=== PATIENT | female | born 1975 | race Two or more races ===

== ENCOUNTER 2021-01-14 11:43 | Emergency (ER) | payer MEDICAID, OTHER ==
[~2021-01-14] VITALS: Ht 157.5 cm; Wt 52.2 kg
[~2021-01-14 11:43] MED LIST: ATOR20TA50 PO; CIPR-173 PO; METF-929 PO
[2021-01-14 13:41] VITALS: BP 91/52
[2021-01-14] MEDS ORDERED: HYDROcodone-ACET 5/325MG TAB PO ONE (14:00)
== END 2021-01-14 14:29 | disposition home or self-care (01) ==
LOC: ER 11:43
DX: S70.11XA Contusion of right thigh, initial encounter (principal); E11.9 Type 2 diabetes mellitus without complications; Z79.2 Long term (current) use of antibiotics; Z79.899 Other long term (current) drug therapy; W18.39XA Other fall on same level, initial encounter; Y93.89 Activity, other specified; Y92.89 Other specified places as the place of occurrence of the external cause; Y99.8 Other external cause status
CPT/HCPCS: 73502

== ENCOUNTER 2021-01-18 11:25 | Emergency (ER) | payer MEDICAID ==
[~2021-01-18] VITALS: Ht 157.5 cm; Wt 52.2 kg
[2021-01-18] MEDS ORDERED: KETOROLAC TROMETH 60MG/2ML VIAL IM ONE (12:45)
[2021-01-18 12:50] VITALS: BP 96/71
== END 2021-01-18 13:31 | disposition home or self-care (01) ==
LOC: ER 11:25
DX: M54.41 Lumbago with sciatica, right side (principal); E11.9 Type 2 diabetes mellitus without complications; Z79.84 Long term (current) use of oral hypoglycemic drugs; Z79.2 Long term (current) use of antibiotics; Z79.899 Other long term (current) drug therapy
CPT/HCPCS: 96372; 99283; J1885

== ENCOUNTER 2021-08-21 16:28 | Emergency (ER) | payer MEDICAID ==
[~2021-08-21] VITALS: Ht 157.5 cm; Wt 52.2 kg
[2021-08-21] MEDS ORDERED: NAPR1TAB87 PO (21:03)
[2021-08-21] MEDS ORDERED: SULF400T11 PO (21:03)
[2021-08-21] MEDS ORDERED: KETOROLAC TROMETH 60MG/2ML VIAL IM ONE (21:15)
[2021-08-21] MEDS ORDERED: cefTRIAXone SOD 1,000 MG VL IM ONE (21:15)
[2021-08-21 21:18] VITALS: BP 124/77
== END 2021-08-21 21:50 | disposition home or self-care (01) ==
LOC: ER 16:28
DX: L02.412 Cutaneous abscess of left axilla (principal); R51.9 Headache, unspecified; R53.83 Other fatigue; E11.9 Type 2 diabetes mellitus without complications
CPT/HCPCS: 96372; 99284; J0696; J1885